=== PATIENT | female | born 1990 | race Caucasian/White ===

== ENCOUNTER 2017-12-29 19:39 | Emergency (ER) | payer MEDICAID ==
--- NOTE | 2017-12-29 20:15 | EDPHY ---
H & P Time Seen by Provider: 12/29/17 20:01 HPI/ROS: CHIEF COMPLAINT: Right groin swelling HISTORY OF PRESENT ILLNESS: Present for the past week, swelling and redness in the right groin pain just above the inguinal area. No fevers or chills, no recent injury or trauma. No intestinal symptoms of vomiting or diarrhea or abdominal pain REVIEW OF SYSTEMS: Says she is undergoing topical steroid withdrawal for the last several months from her skin condition PAST MEDICAL HISTORY: Asthma, and eczema General Appearance: Alert and conversant, cooperative. Emergency Department course/MDM: Patient has indurated area 2 cm just above her inguinal crease medially on the right side. It is not a hernia. No fluctuance and no lymphangitis. Slightly erythematous and tender to palpation. Likely acute cellulitis or folliculitis, will treat with Bactrim and Keflex. Patient is reluctant to initially use antibiotics, she wants to try warm compresses for 24 hr and then start antibiotics if she is not improving which I think is reasonable. Smoking Status: Never smoked Constitutional: Initial Vital Signs Temperature (C) 36.7 C 12/29/17 19:45 Heart Rate 64 12/29/17 19:45 Respiratory Rate 16 12/29/17 19:45 Blood Pressure 109/59 L 12/29/17 19:45 O2 Sat (%) 97 12/29/17 19:45 O2 Delivery Mode Room Air Allergies/Adverse Reactions: peanut Allergy (Verified 12/29/17 19:48) Home Medications: Medication Instructions Recorded Cephalexin [Keflex] 500 mg PO QID #28 cap 12/29/17 Sulfamethox/Tmp 800/160 mg 1 tab PO BID@1000,2200 #14 tab 12/29/17 [Bactrim Ds] MDM/Departure - Depart Disposition: Home, Routine, Self-Care Clinical Impression: Cellulitis of groin, right Condition: Good Instructions: Cephalexin (By mouth), Sulfamethoxazole/Trimethoprim (By mouth) Additional Instructions: Warm compresses to right groin for 20 min at a time 3 or 4 times a day over the next 3-4 days. Please start antibiotics if you're not getting better in the next 24 hours. Prescriptions: Cephalexin [Keflex] 500 mg PO QID #28 cap Sulfamethox/Tmp 800/160 mg [Bactrim Ds] 1 tab PO BID@1000,2200 #14 tab Referrals: Lubna Weir [Primary Care Provider] - As per Instructions
[2017-12-29 20:34] VITALS: BP 110/54
== END 2017-12-29 20:34 | disposition home or self-care (01) ==
DX: L03.314 Cellulitis of groin (principal); J45.909 Unspecified asthma, uncomplicated; Z91.010 Allergy to peanuts